=== PATIENT | male | born 1955 | race Caucasian/White ===

== ENCOUNTER 2017-02-19 20:10 | Inpatient (IN) | payer MEDICAID ==
[~2017-02-19] VITALS: Ht 180.3 cm; Wt 100.2 kg
[2017-02-19 20:15] VITALS: BP 177/102
--- NOTE | 2017-02-19 20:36 | NUR ---
PATIENT AMBULATED TO ER BED 5.
--- NOTE | 2017-02-19 20:45 | NUR ---
PATIENT BEING EVALUATED BY DR. ESCAMILLA.
[2017-02-19] MEDS ORDERED: NITROGLYCERIN 2% 1 GM PKT TP ONE (20:50)
[2017-02-19] MEDS ORDERED: ASPIRIN 81 MG TAB.CHEW PO ONE (20:50)
--- NOTE | 2017-02-19 20:50 | NUR ---
61 Y/O BIB TO ED W/C/O CHEST DISCOMFORT X 20 MINUTES. MED HX OPEN HEART SURGERY MAY 2016, 5 BIPASS AND HTN. AAO X4, AMBULATORY WITH STEDAY GAIT. RESPIRATIONSS ROOM AIR, EVEN AND UNLABLORED. NO PAIN AT THIS TIME. VSS, ER MD MADE AWARE OF PT. STATUS.
[2017-02-19] MEDS ORDERED: CLOP75TA55 PO (20:51)
[2017-02-19] MEDS ORDERED: AMLO-143 PO (20:52)
[2017-02-19] MEDS ORDERED: PANT40EC PO (20:53)
[2017-02-19] MEDS ORDERED: METO50TE2 PO (20:55)
[2017-02-19] MEDS ORDERED: ATOR20TA40 PO (20:57)
[2017-02-19] MEDS ORDERED: ORE25 PO (20:58)
[2017-02-19] MEDS ORDERED: ASPI81CT95 PO (20:59)
[2017-02-19] MEDS ORDERED: ACET-2869 PO ×2 (21:01→21:02)
[2017-02-19 21:26] LABS: BASOPHILS # (AUTO) 0.4 K/uL (0.00-0.22); EOSINOPHILS # (AUTO) 0.7 K/uL (0-0.4); HEMATOCRIT 42.1 % (36-52); HEMOGLOBIN 13.9 g/dL (12.0-18.0); LYMPHOCYTES # (AUTO) 2.3 K/uL (2.0-11.5); MEAN CORPUSCULAR HEMOGLOBIN 29 pg (27-31); MEAN CORPUSCULAR HGB CONC 33 g/dL (33-37); MEAN CORPUSCULAR VOLUME 88 fL (80-94); MONOCYTES # (AUTO) 0.8 K/uL (0.8-1.0); NEUTROPHILS # (AUTO) 4.4 K/uL (1.8-7.7); PLATELET COUNT (AUTO) 246 K/uL (140-450); RED BLOOD CELL COUNT(AUTO) 4.76 MIL/uL (4.20-6.10); RED CELL DISTRIBUTION WIDTH 12.2 % (11.6-13.7); WHITE BLOOD COUNT (AUTO) 8.6 K/uL (4.8-10.8)
[2017-02-19 21:36] LABS: ANION GAP 12.2 (8-16); CARBON DIOXIDE 27.2 mmol/L (21-32); CREATININE 0.7 mg/dL (0.7-1.3); POTASSIUM 3.4 mmol/L (3.5-5.1)
[2017-02-19 21:38] LABS: CHOL/HDL RATIO 3.2 (1-4.5)
[2017-02-19 21:42] LABS: TOTAL BILIRUBIN 0.3 mg/dL (0.0-1.0)
[2017-02-19 21:47] LABS: CREATINE KINASE MB 0.3 ng/mL (0-3.6)
--- NOTE | 2017-02-19 22:00 | NUR ---
Patient appears to be resting comfortably in bed. Vital Signs within normal limits. Respirations even and unlabored.
[2017-02-19] MEDS ORDERED: HYDROcodone/APAP 7.5/325 MG 1 TAB PO PRN (23:20)
[2017-02-19] MEDS ORDERED: MORPHINE SULFATE 2 MG/ML SYR IVP PRN (23:20)
[2017-02-19] MEDS ORDERED: DOCUSATE SODIUM 100 MG GELCAP PO PRN (23:20)
[2017-02-19] MEDS ORDERED: ACETAMINOPHEN 325 MG TAB PO PRN (23:20)
[2017-02-19] MEDS ORDERED: ONDANSETRON 4 MG/2 ML VIAL IM/IVP PRN (23:20)
--- NOTE | 2017-02-20 | NUR ---
Patient appears to be resting comfortably in bed. Vital Signs within normal limits. Respirations even and unlabored.
[2017-02-20 00:10] LABS: FREE T4 (FREE THYROXINE) 0.88 ng/dL (0.76-1.46); MAGNESIUM 2.2 mg/dL (1.8-2.4); PHOSPHORUS 3.7 mg/dL (2.5-4.9); THYROID STIMULATING HORMONE 4.13 uIU/mL (0.34-3.74)
--- NOTE | 2017-02-20 01:25 | NUR ---
Patient will be admitted to care of DR. WALDEN. Admited to ICU. Will go to room 8. Belongings list completed. Report to ZORAIDA HANCOCK.
--- NOTE | 2017-02-20 01:31 | NUR ---
Admitted from , with chief complaint of CHEST PAIN 61 y/o ,Male, Appropriate, oriented to call light, bed, phone,television, bathroom, smoking policy, visiting hours, procedures, ID bracelet on. Belongings list checked. PT AAO, AT BEDSIDE, SKIN WARM TO TOUCH RESP. EVEN AND UNLABORED, NO SOB NOTED, PT HAPPY, SMILING, BODY ASSESSMENT DONE,NOTED, DRY SCRATCHES ON RIGHT LOWER LEG
[2017-02-20 01:40] VITALS: BP 138/88
[2017-02-20] MEDS: NACL 0.9% 1,000 ML IV SCH ×2 (02:03→22:00)
--- NOTE | 2017-02-20 03:30 | NUR ---
PT. AWAKE DENIED CHEST PAIN.IV SITE ON LEFT HAND INFUSING 0.9% NS AE 60ML/HR THE SITE IS DRY NO REDNESS OR WELLING NOTE.
[2017-02-20 03:48] LABS: BASOPHILS # (AUTO) 0.4 K/uL (0.00-0.22); BASOPHILS % (AUTO) 4.8 % (0.0-2.0); EOSINOPHILS # (AUTO) 0.7 K/uL (0-0.4); EOSINOPHILS % (AUTO) 9.1 % (0.0-4.0); HEMOGLOBIN 13.2 g/dL (12.0-18.0); LYMPHOCYTES % (AUTO) 25.5 % (20.5-51.1); MEAN CORPUSCULAR HEMOGLOBIN 30 pg (27-31); MEAN CORPUSCULAR HGB CONC 34 g/dL (33-37); MEAN CORPUSCULAR VOLUME 88 fL (80-94); MONOCYTES # (AUTO) 0.9 K/uL (0.8-1.0); MONOCYTES % (AUTO) 11.4 % (1.7-9.3); NEUTROPHILS % (AUTO) 49.2 % (42.2-75.2); PLATELET COUNT (AUTO) 251 K/uL (140-450); RED BLOOD CELL COUNT(AUTO) 4.44 MIL/uL (4.20-6.10); RED CELL DISTRIBUTION WIDTH 12.7 % (11.6-13.7)
[2017-02-20 03:59] LABS: ANION GAP 7.5 (8-16); CARBON DIOXIDE 30.9 mmol/L (21-32); CREATININE 0.8 mg/dL (0.7-1.3); POTASSIUM 3.4 mmol/L (3.5-5.1)
--- NOTE | 2017-02-20 06:00 | NUR ---
RESTING DENIED CHEST PAIN V/S WITH IN NORMAL LIMIT.
--- NOTE | 2017-02-20 07:00 | NUR ---
PT SLEEPING WELL . REPORT GIVE TO PEGGY CONWAY.
[2017-02-20 07:11] VITALS: BP 145/88
[2017-02-20] MEDS ORDERED: POTASSIUM CHLORIDE 20% 40 MEQ/15 ML UDC PO SCH (07:22)
--- NOTE | 2017-02-20 07:30 | NUR ---
RECEIVED REPORT FROM NIGHT RN ROXY FOR CONTINUITY OF CARE. PATIENT IS AWAKE AND ORIENTED X4. ABLE TO MAKE HIS NEEDS KNOWN. SKIN WARM TO TOUCH WNL, NO EDEMA, WITH HAIR GROWTH, TOENAILS WNL AND +2 BILATERAL PEDAL PULSES. URINE AND BOWEL CONTINENT, ABLE TO MAKE HIS NEEDS KNOWN. AT BEDSIDE DURING ASSESSMENT. CONCERNS AND QUESTIONS ANSWERED. LEFT DORSAL HAND G18 PERIPHERAL IV PATENT AND INTACT TO NS AT 60 CC/H. SURGICAL SCARRING NOTED TO THE STERNUM. NO COMPLAINTS OF CHEST PAIN MADE AT THIS TIME. CALL LIGHT WITHIN REACH. WILL CONTINUE TO MONITOR PATIENT.
--- NOTE | 2017-02-20 07:40 | NUR ---
BREAKFAST SERVED AT THIS TIME.
--- NOTE | 2017-02-20 07:55 | NUR ---
PATIENT CONSUMED 100 PERCENT OF MEAL SERVED.
--- NOTE | 2017-02-20 09:24 | NUR ---
PATIENT HAS BEEN SCREENED AND CATEGORIZED MODERATE NUTRITION RISK. PATIENT WILL BE SEEN WITHIN 3-5 DAYS OF ADMISSION. 02/22/17-02/24/[address]
--- NOTE | 2017-02-20 10:00 | NUR ---
ECHO DONE BY SYSTEMS INTEGRATION ENGINEER AT BEDSIDE.
[2017-02-20] MEDS ORDERED: ATORVASTATIN 20 MG TAB PO SCH (10:26)
[2017-02-20] MEDS ORDERED: ASPIRIN 81 MG TAB.CHEW PO SCH (10:26)
[2017-02-20] MEDS ORDERED: HYDROCHLOROTHIAZIDE 25 MG TAB PO SCH (10:27)
[2017-02-20] MEDS ORDERED: CLOPIDOGREL 75 MG TAB PO SCH (10:27)
[2017-02-20] MEDS ORDERED: PANTOPRAZOLE 40 MG TABEC PO SCH (10:28)
[2017-02-20] MEDS ORDERED: METOPROLOL SUCCINATE 50 MG TABER PO SCH (10:28)
--- NOTE | 2017-02-20 11:15 | NUR ---
MEDICAL RECORDS REQUESTED FROM [employer] FAX [phone].
[2017-02-20 12:00] VITALS: BP 148/99
--- NOTE | 2017-02-20 12:53 | NUR ---
SPOKE WITH HERNAN FROM [facility]. FAXED INITIAL REVIEW TO HER AT [phone] PHONE VIDYA [phone]
[2017-02-20 16:00] VITALS: BP 132/80
--- NOTE | 2017-02-20 18:55 | NUR ---
RECEIVED PT FROM ICU IN STABLE CONDITION. PT AAOX4. NO SOB NOTED. NO C/O PAIN AT THIS TIME. FAMILY AT THE BEDSIDE. COPY OF OPERATIVE RECORD FOR LILY PLACED IN PT'S CHART. DR. ALVAREZ IS HERE TO SEE PT AND NOTIFIED OF PT'S OPERATIVE RECORD COPIES AVAILABLE IN PT'S CHART. WILL ENDORSE TO NEXT SHIFT NURSE FOR CONTINUITY OF CARE.
--- NOTE | 2017-02-20 19:00 | NUR ---
TRANSFERRED PATIENT TO TELE UNIT PER HOSPITAL BED IN STABLE CONDITION. REPORT GIVEN TO KYA CONWAY.
--- NOTE | 2017-02-20 19:15 | NUR ---
RECEIVED PT FROM KYA RN PT IS AAOX4 AMBULATORY TRANSFER FROM ICU ON STABLE CONDITION , TELEMETRY SR; relatives at bed side initial assessment done
[2017-02-20 20:00] VITALS: BP 134/78
[2017-02-20] MEDS ORDERED: LORazepam 1 MG TAB PO PRN (21:45)
--- NOTE | 2017-02-20 22:00 | NUR ---
pt voiding well denies any pain or discomfort, remain stable at this time
[2017-02-21] VITALS: BP 125/70
--- NOTE | 2017-02-21 01:54 | NUR ---
PT SLEEPING WELL NOT DISTRESS NOTED ON TELEMETRY SR
[2017-02-21 04:00] VITALS: BP 99/54
--- NOTE | 2017-02-21 04:00 | NUR ---
SPONGE BATH GIVEN PT DENIES ANY PAIN ON TELE SR
[2017-02-21 05:41] LABS: BASOPHILS # (AUTO) 0.2 K/uL (0.00-0.22); BASOPHILS % (AUTO) 1.9 % (0.0-2.0); EOSINOPHILS # (AUTO) 0.6 K/uL (0-0.4); EOSINOPHILS % (AUTO) 6.6 % (0.0-4.0); HEMATOCRIT 39.8 % (36-52); HEMOGLOBIN 13.5 g/dL (12.0-18.0); LYMPHOCYTES % (AUTO) 21.7 % (20.5-51.1); MEAN CORPUSCULAR HEMOGLOBIN 30 pg (27-31); MEAN CORPUSCULAR HGB CONC 34 g/dL (33-37); MEAN CORPUSCULAR VOLUME 89 fL (80-94); MONOCYTES # (AUTO) 0.7 K/uL (0.8-1.0); MONOCYTES % (AUTO) 8.3 % (1.7-9.3); NEUTROPHILS # (AUTO) 5.5 K/uL (1.8-7.7); NEUTROPHILS % (AUTO) 61.5 % (42.2-75.2); PLATELET COUNT (AUTO) 252 K/uL (140-450); RED BLOOD CELL COUNT(AUTO) 4.48 MIL/uL (4.20-6.10); RED CELL DISTRIBUTION WIDTH 12.5 % (11.6-13.7)
[2017-02-21] MEDS ORDERED: PANTOPRAZOLE 40 MG TABEC PO SCH (06:30)
[2017-02-21 06:36] LABS: MAGNESIUM 1.9 mg/dL (1.8-2.4); PHOSPHORUS 3.7 mg/dL (2.5-4.9)
--- NOTE | 2017-02-21 06:52 | NUR ---
VOIDING WELL NOT DISTRESS NOTED DENIES ANY PAIN ON TELEMETRY SR
[2017-02-21 07:08] LABS: ANION GAP 13.6 (8-16); CARBON DIOXIDE 25.2 mmol/L (21-32); CREATININE 0.8 mg/dL (0.7-1.3); POTASSIUM 3.8 mmol/L (3.5-5.1)
--- NOTE | 2017-02-21 07:15 | NUR ---
RECEIVED REPORT FROM NIGHT NURSE JEREMÍAS AT PT BEDSIDE. PATIENT IS SLEEPING, EASILY AWAKENS. ALERT AND ORIENTED. FOLLOWS COMMANDS. DENIES CHEST PAIN. NO S/S OF RESPIRATORY DISTRESS. IV SITE PATENT AND INTACT. DENIES N/V/D. CALL LIGHT WITHIN REACH.
[2017-02-21 08:00] VITALS: BP 145/87
[2017-02-21] MEDS: NACL 0.9% 1,000 ML IV SCH (08:13)
[2017-02-21 08:20] LABS: T4 (THYROXINE) 6.3 ug/dL (4.5-12.0)
--- NOTE | 2017-02-21 08:20 | NUR ---
PATIENT SEEN BY DR. RANGEL AT PT BEDSIDE. PATIENT IS TO BE DISCHARGED HOME. NO S/S OF ACUTE DISTRESS. PATIENT REFUSES IVF. SCDS IN PLACE.
[2017-02-21] MEDS ORDERED: ASPIRIN 81 MG TAB.CHEW PO SCH (09:00)
[2017-02-21] MEDS ORDERED: HYDROCHLOROTHIAZIDE 25 MG TAB PO SCH (09:00)
[2017-02-21] MEDS ORDERED: METOPROLOL SUCCINATE 50 MG TABER PO SCH (09:00)
[2017-02-21] MEDS ORDERED: ATORVASTATIN 20 MG TAB PO SCH (09:00)
[2017-02-21] MEDS ORDERED: CLOPIDOGREL 75 MG TAB PO SCH (09:00)
--- NOTE | 2017-02-21 09:45 | NUR ---
PATIENT DISCHARGED WITH DISCHARGE TEACHING. F/U APPOINTMENTS MADE WITH PCP AND [employer] FABRICATOR, VERBALIZED UNDERSTANDING. ALERT AND ORIENTED. AT BEDSIDE TO TAKE PATIENT HOME. DENIES PAIN. NO S/S OF ACUTE DISTRESS. WHEELED TO FRONT LOBBY FOR DISCHARGE.
--- NOTE | 2017-02-21 09:48 | NUR ---
CM NOTE CONCURRENT REVIEW FAXED TO [facility] [phone] PH [phone] AND TO [facility] [phone] VIDYA [phone]
== END 2017-02-21 09:45 | disposition home or self-care (01) | DRG 203 ==
LOC: MED 20:10 → MIC 23:19 → MTU 02-20 18:59
PROVIDERS: ADMIT Family Medicine Sports Medicine; ATTEND Family Medicine Sports Medicine
DX: M94.0 Chondrocostal junction syndrome [Tietze] (principal); I10 Essential (primary) hypertension; K21.9 Gastro-esophageal reflux disease without esophagitis; E78.5 Hyperlipidemia, unspecified; E02 Subclinical iodine-deficiency hypothyroidism; E87.6 Hypokalemia; Z79.02 Long term (current) use of antithrombotics/antiplatelets; Z79.82 Long term (current) use of aspirin; Z79.899 Other long term (current) drug therapy; Z95.1 Presence of aortocoronary bypass graft; I25.2 Old myocardial infarction
CPT/HCPCS: 36415; 71010; 80048; 80053; 82550; 82553; 83036; 83735; 83880; 84100; 84436; 84439; 84443; 84479; 84484; 85025; 85379; 85610; 85730; 87081; 93005; 99291; J7030; Q0092

== ENCOUNTER 2018-01-02 18:34 | Emergency (ER) | payer MEDICAID, OTHER ==
[~2018-01-02] VITALS: Ht 175.3 cm; Wt 104.3 kg
[~2018-01-02 18:34] MED LIST: ACET-2869 PO; AMLO-143 PO; ASPI81CT95 PO; ATOR20TA40 PO; CLOP75TA55 PO; METO50TE2 PO; ORE25 PO; PANT40EC PO
[2018-01-02 18:36] VITALS: BP 147/90
--- NOTE | 2018-01-02 18:47 | NUR ---
PT AMBULATES W/ STEADY GAIT TO BED 3 AT THIS TIME. REPORT GIVEN TO OZRAIDA BUNCH.
--- NOTE | 2018-01-02 18:50 | NUR ---
62 YO M BIB FAMILY W/ RIGHT SIDE PAIN. PT WOKE UP WITH THE PAIN 10/10, SHARP PAIN AT THE RIB CAGE, EXACERBATES WHEN HE BREATHES IN. DENIES TRAUMA OR FALL, BUT REPORTS THAT HE MAY HAVE SLEPT WRONG, EVEN THOUGH HE HAD A GREAT NIGHT SLEEP. DENIES N/V/FEVER/CHILLS. HAS NOT TAKEN MEDICATION FOR THE PAIN. HAD ANGIOGRAM AT [facility] LAST WEEK. AAOX4. GCS 15. CMS INTACT. BED DOWN; BEDRAILS UP X 1; ER MD AWARE AND NOTIFIED OF PT STATUS. HX; 2 STENTS PLACED FOLLOWING OPEN HEART SURGERY MAY 2016, STENTS PLACED AT [facility] ON 09/25/17 RX; ATORVASTATIN, METROPOLOL, AMLODIPINE, HYDROCODONE, CLOPIDROGEL, PANTOPRAZOLE, LOSARTAN, ASPIRIN
--- NOTE | 2018-01-02 19:37 | NUR ---
PT SITTING IN BED. FAMILY AT BEDSIDE. PT HAVING SOME PAIN AND DISCOMFORT. MD NOTIFIED.
[2018-01-02] MEDS ORDERED: NACL 0.9% 1,000 ML IV SCH (19:42)
[2018-01-02] MEDS ORDERED: KETOROLAC 30 MG/ML VIAL IVP ONE (19:45)
[2018-01-02] MEDS ORDERED: ONDANSETRON 4 MG/2 ML VIAL IVP ONE (19:45)
[2018-01-02] MEDS ORDERED: MORPHINE SULFATE 4 MG/ML SYR IVP ONE (19:45)
--- NOTE | 2018-01-02 19:52 | NUR ---
ct took pt
--- NOTE | 2018-01-02 20:04 | NUR ---
pt back in bed from ct.
--- NOTE | 2018-01-02 20:04 | NUR ---
lab and utlrasound with pt at bedside. vitals stable
[2018-01-02 20:16] LABS: BASOPHILS % (AUTO) 0.2 % (0.0-2.0); EOSINOPHILS # (AUTO) 0.5 K/uL (0-0.4); EOSINOPHILS % (AUTO) 3.9 % (0.0-4.0); HEMATOCRIT 41.7 % (36-52); HEMOGLOBIN 13.7 g/dL (12.0-18.0); LYMPHOCYTES # (AUTO) 2.3 K/uL (2.0-11.5); LYMPHOCYTES % (AUTO) 18.9 % (20.5-51.1); MEAN CORPUSCULAR HEMOGLOBIN 29 pg (27-31); MEAN CORPUSCULAR HGB CONC 33 g/dL (33-37); MEAN CORPUSCULAR VOLUME 87.8 fL (80-94); MONOCYTES # (AUTO) 1.2 K/uL (0.8-1.0); MONOCYTES % (AUTO) 9.8 % (1.7-9.3); NEUTROPHILS # (AUTO) 8.1 K/uL (1.8-7.7); NEUTROPHILS % (AUTO) 67.2 % (42.2-75.2); PLATELET COUNT (AUTO) 237 K/uL (140-450); RED BLOOD CELL COUNT(AUTO) 4.74 MIL/uL (4.20-6.10)
[2018-01-02 21:29] LABS: ALBUMIN 4.1 g/dL (3.4-5.0); ANION GAP 9.2 (8-16); CARBON DIOXIDE 31.2 mmol/L (21-32); CREATININE 0.8 mg/dL (0.7-1.3); POTASSIUM 4.4 mmol/L (3.5-5.1); TOTAL BILIRUBIN 0.4 mg/dL (0.0-1.0)
--- NOTE | 2018-01-02 22:03 | NUR ---
AWAITING DC PAPERS FROM [facility]
--- NOTE | 2018-01-02 22:06 | NUR ---
PT RESTING IN BED. FAMILY AT BEDSIDE. VITALS STABLE. PAIN DECREASED TO A LEVEL 7/10.
[2018-01-02 22:30] VITALS: BP 148/82
--- NOTE | 2018-01-02 22:30 | NUR ---
Patient discharged with v/s stable. Written and verbal after care instructions given and explained. Patient alert, oriented and verbalized understanding of instructions. Ambulatory with steady gait. All questions addressed prior to discharge. ID band removed. Patient advised to follow up with PMD. Rx of NORCO, IBUPROFEN, ACYCLOVIR WERE given. Patient educated on indication of medication including possible reaction and side effects. Opportunity to ask questions provided and answered.
[2018-01-02 22:36] LABS: BILIRUBIN,URINE NEGATIVE (NEGATIVE); BLOOD, URINE NEGATIVE (NEGATIVE); LEUKOCYTE ESTERASE ,URINE NEGATIVE (NEGATIVE); NITRITE, URINE NEGATIVE (NEGATIVE); PH,URINE 5.5 (5.0-9.0); UGLUCOSE NEGATIVE (NEGATIVE)
[2018-01-02 22:37] LABS: APPEARANCE,URINE CLEAR (CLEAR); COLOR,URINE YELLOW (YELLOW)
== END 2018-01-02 22:30 | disposition home or self-care (01) ==
LOC: MED 18:34
DX: R10.11 Right upper quadrant pain (principal); B02.9 Zoster without complications; I10 Essential (primary) hypertension; Z79.899 Other long term (current) drug therapy; Z79.82 Long term (current) use of aspirin
CPT/HCPCS: 36415; 74176; 76705; 80053; 81003; 83690; 85025; 96374; 96375; 99285; J1885; J2270; J2405; Q0092

== ENCOUNTER 2021-09-23 08:35 | Emergency (ER) | payer OTHER ==
[~2021-09-23] VITALS: Ht 180.3 cm; Wt 102.1 kg
[~2021-09-23 08:35] MED LIST changes: -ACET-2869 PO; +HYDR-4004 PO; +HYDR-5122 PO; -ORE25 PO
[2021-09-23 08:42] VITALS: BP 156/92
--- NOTE | 2021-09-23 08:53 | NUR ---
PATIENT AMBULATED TO BED 7.
--- NOTE | 2021-09-23 09:08 | NUR ---
XRAY AT BEDSIDE
[2021-09-23] MEDS ORDERED: LIDOCAINE/EPI 1% 1:100000 20 ML VIAL INJ ONE (09:10)
[2021-09-23] MEDS ORDERED: ceFAZolin 1,000 MG VIAL IM ONE (09:10)
[2021-09-23] MEDS ORDERED: CEPH-588 PO (09:52)
[2021-09-23] MEDS ORDERED: chlordiazePOXIDE 25 MG CAP PO SCH (10:05)
--- NOTE | 2021-09-23 10:08 | NUR ---
Patient discharged with v/s stable. Written and verbal after care instructions given and explained. Patient alert, oriented and verbalized understanding of instructions. Ambulatory with steady gait. All questions addressed prior to discharge. ID band removed. Patient advised to follow up with PMD. Rx of CEPHALEXIN given. Opportunity to ask questions provided and answered.
[2021-09-23 10:10] VITALS: BP 156/92
--- NOTE | 2021-09-23 10:36 | NUR ---
The patient's care was reviewed and supervised by Karo Miranda, RN, RN.
== END 2021-09-23 10:10 | disposition home or self-care (01) ==
LOC: MED 08:35
DX: L02.512 Cutaneous abscess of left hand (principal); L03.012 Cellulitis of left finger; I10 Essential (primary) hypertension; Z95.5 Presence of coronary angioplasty implant and graft; Z79.899 Other long term (current) drug therapy; Z79.891 Long term (current) use of opiate analgesic; Z79.2 Long term (current) use of antibiotics; Z79.01 Long term (current) use of anticoagulants
CPT/HCPCS: 10060; 73140; 90471; 90715; 96372; 99284; J0690; J2001

== ENCOUNTER 2021-09-28 21:13 | Emergency (ER) | payer OTHER ==
[~2021-09-28] VITALS: Ht 181.6 cm; Wt 101.7 kg
[~2021-09-28 21:13] MED LIST changes: +CEPH-588 PO
[2021-09-28 21:26] VITALS: BP 141/73
--- NOTE | 2021-09-28 21:30 | NUR ---
pt taken to lobby.
--- NOTE | 2021-09-28 22:32 | NUR ---
pt taken to bed 08.
--- NOTE | 2021-09-28 23:19 | NUR ---
Dr. Miller examining patient.
[2021-09-28] MEDS ORDERED: SULFAMETH/TRIMETH DS 800/160MG 1 TAB PO ONE (23:25)
--- NOTE | 2021-09-28 23:41 | NUR ---
X-Ray at bedside.
[2021-09-28] MEDS ORDERED: BACI1PAC6 TP (23:57)
[2021-09-28] MEDS ORDERED: SULF-59 PO (23:57)
[2021-09-29] MEDS ORDERED: BACITRACIN OINT 500 UNITS/GM PKT TP ONE
[2021-09-29 00:10] VITALS: BP 141/73
--- NOTE | 2021-09-29 00:10 | NUR ---
Patient discharged with v/s stable. Written and verbal after care instructions given and explained. Patient alert, oriented and verbalized understanding of instructions. Ambulatory with steady gait. All questions addressed prior to discharge. ID band removed. Patient advised to follow up with PMD. Rx of BACITRACIN AND BACTRIM DS TABLET given. Opportunity to ask questions provided and answered.
--- NOTE | 2021-09-29 00:17 | NUR ---
The patient's care was reviewed and supervised by Edwina Moreno RN.
== END 2021-09-29 00:10 | disposition home or self-care (01) ==
LOC: MED 21:13
DX: S61.211D Laceration without foreign body of left index finger without damage to nail, subsequent encounter (principal); L08.9 Local infection of the skin and subcutaneous tissue, unspecified; I10 Essential (primary) hypertension; Z95.5 Presence of coronary angioplasty implant and graft; Z98.890 Other specified postprocedural states; Z79.2 Long term (current) use of antibiotics; Z79.891 Long term (current) use of opiate analgesic; Z79.01 Long term (current) use of anticoagulants; Z79.82 Long term (current) use of aspirin; Z79.899 Other long term (current) drug therapy; W26.8XXD Contact with other sharp object(s), not elsewhere classified, subsequent encounter
CPT/HCPCS: 73140; 99283; Q0092

== ENCOUNTER 2021-10-17 04:30 | Emergency (ER) | payer OTHER ==
[~2021-10-17] VITALS: Ht 180.3 cm; Wt 101.3 kg
[~2021-10-17 04:30] MED LIST changes: +BACI1PAC6 TP; +SULF-59 PO
[2021-10-17 04:36] VITALS: BP 169/95
--- NOTE | 2021-10-17 04:40 | NUR ---
PT AMBULATED TO BED 9
--- NOTE | 2021-10-17 04:51 | NUR ---
66 Y/O MALE BIBS, C/O 01/03 left index finger pain x2days. pt states he injured his finger 1 month ago, states it healed. 3 days ago he was working on his car and thinks he may have reinjured himself. +swelling. finger is weeping. pt applied aloe vera, tumeric and garlic with no relief. a/ox4, gcs-15; unlabored breathing, ambulatory; skin is normal warm and dry. pt seated in bed with hob raised, bed in lowest setting, and rail up x1. hx:4stents nka
--- NOTE | 2021-10-17 04:54 | NUR ---
er md at bedside examining pt
[2021-10-17] MEDS ORDERED: CLIN300C2 PO (05:02)
[2021-10-17] MEDS: CLINDAMYCIN 150 MG CAP PO ONE (05:14)
[2021-10-17] MEDS: BACITRACIN OINT 500 UNITS/GM PKT TP ONE (05:14)
[2021-10-17 05:19] VITALS: BP 169/95
--- NOTE | 2021-10-17 05:20 | NUR ---
Patient discharged with v/s stable. Written and verbal after care instructions given and explained. Patient alert, oriented and verbalized understanding of instructions. Ambulatory with steady gait. All questions addressed prior to discharge. ID band removed. Patient advised to follow up with PMD. Rx of CLEOCIN HCL given. Patient educated on indication of medication including possible reaction and side effects. Opportunity to ask questions provided and answered. VSS, A/OX4, UNLABORED BREATHING, AMBULATORY, AND CALM DEMEANOR.
== END 2021-10-17 05:17 | disposition home or self-care (01) ==
LOC: MED 04:30
DX: S69.82XA Other specified injuries of left wrist, hand and finger(s), initial encounter (principal); L03.012 Cellulitis of left finger; I10 Essential (primary) hypertension; X58.XXXA Exposure to other specified factors, initial encounter; Y93.89 Activity, other specified; Y92.89 Other specified places as the place of occurrence of the external cause; Y99.8 Other external cause status
CPT/HCPCS: 99283

== ENCOUNTER 2023-02-23 09:48 | Emergency (ER) | payer OTHER ==
[~2023-02-23] VITALS: Ht 180.3 cm; Wt 99.8 kg
[~2023-02-23 09:48] MED LIST changes: +BACI-418 TP; -BACI1PAC6 TP; +CLIN300C2 PO
[2023-02-23 10:19] VITALS: BP 143/87; PULSE 70; RESP 14; TEMP 98.2; O2SAT 99
[2023-02-23 11:15] LABS: FLU A ANTIGEN negative (NEGATIVE); FLU B ANTIGEN NEGATIVE (NEGATIVE)
[2023-02-23] MEDS ORDERED: AMOX-1230 PO (11:46)
== END 2023-02-23 11:59 | disposition home or self-care (01) ==
LOC: MED 09:48
DX: J02.9 Acute pharyngitis, unspecified (principal); R05.9 Cough, unspecified; Z20.822 Contact with and (suspected) exposure to COVID-19; I10 Essential (primary) hypertension; Z79.899 Other long term (current) drug therapy; Z79.2 Long term (current) use of antibiotics; Z79.82 Long term (current) use of aspirin; Z79.01 Long term (current) use of anticoagulants
CPT/HCPCS: 99283

== ENCOUNTER 2023-05-23 14:39 | Emergency (ER) | payer OTHER ==
[~2023-05-23] VITALS: Ht 180.3 cm; Wt 95.0 kg
[~2023-05-23 14:39] MED LIST changes: +AMOX-1230 PO
[2023-05-23 15:01] VITALS: BP 109/73; PULSE 73; RESP 19; TEMP 98.1; O2SAT 98
[2023-05-23] MEDS ORDERED: HC/N10SO69 BOTH EARS (15:12)
== END 2023-05-23 16:02 | disposition home or self-care (01) ==
LOC: MED 14:39
DX: H92.03 Otalgia, bilateral (principal); I10 Essential (primary) hypertension; Z79.899 Other long term (current) drug therapy; Z79.2 Long term (current) use of antibiotics; Z79.82 Long term (current) use of aspirin; Z79.01 Long term (current) use of anticoagulants
CPT/HCPCS: 99283

== ENCOUNTER 2023-08-26 10:12 | Observation (INO) | payer OTHER ==
[~2023-08-26] VITALS: Ht 180.3 cm; Wt 93.9 kg
[~2023-08-26 10:12] MED LIST changes: +HC/N10SO69 BOTH EARS
[2023-08-26 10:19] VITALS: BP 127/81; PULSE 67; RESP 17; TEMP 97.6; O2SAT 99
[2023-08-26 10:30] VITALS: O2SAT 99
[2023-08-26 11:23] LABS: BASOPHILS % (AUTO) 0.5 % (0.0-2.0); EOSINOPHILS # (AUTO) 0.5 K/uL (0-0.4); EOSINOPHILS % (AUTO) 5.2 % (0.0-4.0); HEMATOCRIT 42.2 % (36-52); HEMOGLOBIN 14.4 g/dL (12.0-18.0); LYMPHOCYTES # (AUTO) 1.8 K/uL (2.0-11.5); LYMPHOCYTES % (AUTO) 20.5 % (20.5-51.1); MEAN CORPUSCULAR HEMOGLOBIN 30 pg (27-31); MEAN CORPUSCULAR HGB CONC 34 g/dL (33-37); MEAN CORPUSCULAR VOLUME 89.3 fL (80-94); MONOCYTES # (AUTO) 0.8 K/uL (0.8-1.0); MONOCYTES % (AUTO) 9.5 % (1.7-9.3); NEUTROPHILS # (AUTO) 5.8 K/uL (1.8-7.7); NEUTROPHILS % (AUTO) 64.3 % (42.2-75.2); PLATELET COUNT (AUTO) 246 K/uL (140-450); RED BLOOD CELL COUNT(AUTO) 4.72 MIL/uL (4.20-6.10)
[2023-08-26 11:30] LABS: ANION GAP 12.5 (8-16); CALCIUM 9.1 mg/dL (8.5-10.1); CARBON DIOXIDE 27.6 mmol/L (21-32); CREATININE 0.9 mg/dL (0.6-1.3); POTASSIUM 4.1 mmol/L (3.5-5.1)
[2023-08-26] MEDS ORDERED: ACETAMINOPHEN 325 MG TAB PO PRN (14:05)
[2023-08-26] MEDS ORDERED: POTASSIUM CHLORIDE 10 MEQ TABER PO PRN (14:05)
[2023-08-26] MEDS ORDERED: HYDROcodone/APAP 5/325 MG 1 TAB TAB PO PRN (14:05)
[2023-08-26] MEDS ORDERED: MORPHINE SULFATE 4 MG/ML SYR IVP PRN (14:05)
[2023-08-26] MEDS ORDERED: MAG SULF 2000 MG/WATER PREMIX 50 ML IV PRN (14:05)
[2023-08-26] MEDS ORDERED: KCL 20 MEQ IN 100 mL PREMIX 200 ML IV PRN (14:05)
[2023-08-26] MEDS ORDERED: MAGNESIUM OXIDE 400 MG TAB PO PRN (14:05)
[2023-08-26] MEDS ORDERED: ONDANSETRON 4 MG/2 ML VIAL IVP PRN (14:05)
[2023-08-26 16:50] VITALS: BP 125/61; PULSE 70; RESP 20; TEMP 98.2
[2023-08-26 16:55] VITALS: O2SAT 100
[2023-08-27] MEDS ORDERED: ASPIRIN 81 MG TAB.CHEW PO SCH (09:00)
[2023-08-27] MEDS ORDERED: ATORVASTATIN 20 MG TAB PO SCH (09:00)
== END 2023-08-26 17:10 | disposition home or self-care (01) ==
LOC: MED 10:12 → MTU 14:04
PROVIDERS: ADMIT Hospitalist; ATTEND Hospitalist
DX: R07.89 Other chest pain (principal); I10 Essential (primary) hypertension; E78.5 Hyperlipidemia, unspecified; I25.810 Atherosclerosis of coronary artery bypass graft(s) without angina pectoris; R27.0 Ataxia, unspecified; H53.8 Other visual disturbances; R47.81 Slurred speech; Z79.82 Long term (current) use of aspirin
CPT/HCPCS: 36415; 70450; 71045; 80048; 84484; 85025; 93005; 99285; G0378